=== PATIENT | female | born 1980 | race Hispanic/Latino ===

== ENCOUNTER 2017-04-15 07:48 | Day surgery (SDC) | payer OTHER ==
[~2017-04-15] VITALS: Ht 157.5 cm; Wt 60.4 kg
[2017-04-15] VITALS (9 sets, daily range): BP systolic 99–111; BP diastolic 45–82; PULSE 59–76; RESP 12–18; O2SAT 99–100
[~2017-04-15 07:48] MED LIST: CeFAZolin 2 Gm/50 mL D5W IV Premix IV ONE; LEVO25TA5 PO; Lactated Ringer's 1,000 ML IV ONE; VARE1TAB22 PO; ZOLP10TA5 PO
[2017-04-15] MEDS ORDERED: MetoCLOpramide 5 mg/mL 2 mL Inj ONE (07:49)
[2017-04-15] MEDS ORDERED: Ondansetron 2 mg/mL 2 mL Inj ONE (07:49)
[2017-04-15] MEDS ORDERED: Propofol 10 mg/mL 20 mL Inj ONE (07:49)
[2017-04-15] MEDS ORDERED: Dexamethasone 4 mg/mL Inj ONE (07:49)
[2017-04-15] MEDS ORDERED: fentaNYL-PF 50 mCg/mL 2 mL Inj ONE (07:49)
--- NOTE | 2017-04-15 09:32 | PCM.HPANE ---
Patient Data Surgeon Admitting Provider: Attending Provider:Albertina Ibarra MD Primary Care Physician:Imtiaz Smith DO Other Provider:Uli Nash Anesthesia Reason for Visit Mass Of Subcutaneous Tissue Ht/WT & BMI Height (Feet): 5 Height (Inches): 2.00 Weight (Kilograms): 60.400 Body Mass Index 24.00 Allergies Coded Allergies: hydrocodone (Verified Allergy, Unknown, nausea, 04/11/17) oxycodone (Verified Allergy, Unknown, nausea, 04/11/17) Past Anesthesia History Anesthesia History: Denies:: Anesthesia Reactions Diabetes History Hx Diabetes?: No Medications Home Meds Incl Beta Edith: No Reported Medications Zolpidem 10 Mg Tablet5 Mg PO HS PRN For Insomnia Ref 0 04/11/17 Levothyroxine 25 Mcg Tywajn91 Mcg PO DAILY Ref 0 04/11/17 Varenicline Tartrate (Chantix)1 Mg Tablet1 Mg PO DAILY 04/11/17 History History of ENT Problems?: No HEENT History: Denies:: Abnormal Airway Cataracts Difficult Intubation Dysphagia Glaucoma Hearing Problem Sinus Problem TMJ Denture Type: None Teeth Condition: Within Normal Limits Hx of Heart Problems?: No Cardiovascular History: Denies:: AICD Abdominal Aortic Aneurism Atrial Fibrillation Cardiac Surgery Chest Pain Congestive Heart Failure Coronary Artery Disease Edema Heart Murmur Hypertension Irregular Heartbeat Pacemaker Peripheral Vascular Rheumatic Fever Thrombophlebitis Valvular Heart Disease Hx of Respiratory Problem?: No Respiratory History: Denies:: Asthma COPD Chest Surgery Cough Dyspnea Emphysema Hemoptysis Oxygen Administration Pneumonia Pulmonary Embolism Tuberculosis Use of C-PAP Machine Use of Inhalers / NEBS Hx Neurologic Problems?: No Hx of GI Problems?: No Hx of Problems?: No Skin History: Denies:: History Skin Disorders? Pressure Ulcers Hx Musculoskeletal Problems?: Yes Hx of Psycho/Social Problems?: No Hx Surgeries?: Yes (elbow surgery) Hx Any Other Health Problems?: Yes Other History: Positive for:: Thyroid Disease Denies:: Cancer Hx Diabetes: No Hx Alcohol Use: YesHave You Smoked inLast 12 mo: Yes Stop/Bang Treated for Sleep Apnea?: No Do You Have a CPAP Machine?: No S-Snoring: Do You Snore Loudly: No T-Tired: feel tired, fatigued: Yes O-Obsered: Observed not breath: No P-Blood Pressure: treated: No B- Body Mass Index > 35 kg/m2: No A- Age over 50: No N- Neck Large Circumference: No G- Gender Male: No [place]TE Total Score: 1 [place] Risk Assessment: Low Risk, <3 Yes Risk Assessment Category Category 1A: Patient has history of documented sleep apnea, and HAS NOT received any narcotic, sedative or anesthesia administration during this stay. Category 1B: Patient has history of documented sleep apnea, and HAS received any narcotic , sedative or anesthesia administration during this stay Category 2: Patient has SUSPECTED Obstructive Sleep Apnea, and HAS received any narcotic , sedative or anesthesia administration during this stay. Category 3: Patient has SUSPECTED Obstructive Sleep Apnea and HAS NOT received narcotic, sedative or anesthesia administration during this stay. Category 4: Outpatient in Procedural Areas with known sleep apnea or who screen positive for High Risk via the STOP/BANG questionnaire. Exam Exam Vital Signs Vital Signs Date Time Temp Pulse Resp B/P Pulse Ox O2 Delivery O2 Flow Rate FiO2 04/15/17 08:13 36.1 70 12 111/82 100 Room Air General Appearance: Oriented X3 HEENT/AIRWAY: MP 2 Lungs: Normal Air Movement Heart: Regular Rate/Rhythm Meds/Labs/Diagnostics Admission Meds Current Medications Lactated Ringer's (Lr) 1,000 ml @ 10 mls/hr Q24H ONCE IV Last administered on 04/15/17t 08:43; Start 04/15/17 at 05:00; Stop 04/16/17 at 04:59 Plan Impression Patient chart reviewed, patient interviewed and anesthestic plan with risks, benefits, and alternatives discussed, and informed consent obtained. ASA Physical Status: ASA2 Mod Systemic Disease Anesthetic Plan: GA Bene/Risks/Altern/Consents: Yes HP Complete Prior to Induction: Yes David Carrasquillo MD Apr 15, 2017 09:32
[2017-04-15] MEDS ORDERED: Bupivacaine-MPF 0.5% 30 mL Inj INFILTRATE ONE (10:11)
--- NOTE | 2017-04-15 10:46 | PCM.SURGPO ---
Immediate Operative Note Date of Surgery: Apr 15, 2017 Pre Operative Diagnosis R posterior chest subcutaneous mass Post Operative Diagnosis R posterior chest subcutaneous mass Procedure Excision of Right posterior chest subcutaneous mass Surgeon and Regional Owner Operator Truck Driver Surgeon: Albertina Ibarra MD Assistants: Francisco Rock PAC Findings 11X9.5cm Mass grossly consistent with lipoma Complications There were no periprocedural complications identified. Surgical Specimen Removed: Yes Specimen sent to Pathology: Yes Anesthetic Administered: GA Grafts, Implants: None Output, Estimated Blood Loss: 0 Blood Admin during surgery: No Attending Statement Finance Insurance Manager listed was medically necessary for the successful completion of the case Albertina Ibarra MD Apr 15, 2017 10:46
[2017-04-15] MEDS ORDERED: Lactated Ringer's 1,000 ML IV SCH (11:03)
[2017-04-15] MEDS ORDERED: Lactated Ringer's 500 ML IV PRN (11:03)
--- NOTE | 2017-04-15 11:04 | PCM.ANEP1 ---
Post Anesthesia PACU Phase 1 Assessment Vital Signs Vital Signs Date Time Temp Pulse Resp B/P Pulse Ox O2 Delivery O2 Flow Rate FiO2 04/15/17 11:00 76 14 106/68 100 Room Air 04/15/17 10:55 66 15 99/45 100 Simple Mask 6 04/15/17 10:50 59 12 101/59 100 Simple Mask 6 04/15/17 10:47 36.6 103/73 04/15/17 08:13 36.1 70 12 111/82 100 Room Air Anesthetic Administered: GA Level of Alertness: Awake, talking Pain: No Nausea or Vomiting: No CV Function & Hydration Stable: Yes Airway Device: Lungs: Normal Air Movement PACU Phase 2 Assessment Patient Instructions Provided: N/A David Carrasquillo MD Apr 15, 2017 11:04
[2017-04-15] MEDS ORDERED: Ondansetron 2 mg/mL 2 mL Inj IVPUSH PRN (11:05)
[2017-04-15] MEDS ORDERED: EPHEDrine Sulfate 50 mg/mL Inj IVPUSH PRN (11:05)
[2017-04-15] MEDS ORDERED: Dexamethasone 4 mg/mL Inj IVPUSH PRN (11:05)
[2017-04-15] MEDS ORDERED: MetoCLOpramide 5 mg/mL 2 mL Inj IVPUSH PRN (11:05)
[2017-04-15] MEDS ORDERED: fentaNYL-PF 50 mCg/mL 2 mL Inj IVPUSH PRN (11:05)
[2017-04-15] MEDS ORDERED: Phenylephrine 10,000 mCg/mL Inj IVPUSH PRN (11:05)
--- NOTE | 2017-04-16 15:28 | OP ---
[address] [address] OPERATIVE REPORT PATIENT: YENIFER RAO : 1980 MR#: [id number] ADMIT: 04/15/2017 JOB ID: [id number] DATE OF SURGERY: 04/15/2017 PREOPERATIVE DIAGNOSIS(ES): Right posterior chest subcutaneous mass. POSTOPERATIVE DIAGNOSIS(ES): Right posterior chest subcutaneous mass. PROCEDURE PERFORMED: Excision of right posterior chest subcutaneous mass. SURGEON: Albertina Ibarra M.D. TRANSMISSION ASSEMBLER: SANTY INDICATIONS: The patient is a 36-year-old lady who noticed a swelling on the back of her right armpit a year ago. Initially thought it was just her gaining weight but after noticing asymmetry, she discussed it with her primary physician, who obtained an ultrasound which showed findings suggestive of a 10 cm lipoma. She saw me in consultation and after discussing the risks, benefits, and alternatives, she is here today for resection. PROCEDURE DETAILS: She was placed in a supine position. Underwent smooth induction of general anesthesia, and then was placed in a right lateral decubitus position padding all pressure points. I made a vertical incision along May lines anterior to the tattoo on her shoulder blade and divided the skin and subcutaneous tissue sharply. I immediately encountered a fatty tumor most consistent with a lipoma and I dissected it circumferentially with a combination of blunt and sharp techniques. It was directly laying on the top of the latissimus dorsi muscle but did not show any evidence of extending deep to it. After the mass was completely removed, it measured to be 11 x 9.5 cm and after ensuring good hemostasis, I closed the wound in layers of 3-0 Vicryl followed by 4-0 Monocryl. Steri-Strips and sterile dressing were placed and she was recovered from anesthesia and was taken to the recovery room in stable condition.
--- NOTE | 2017-04-17 10:47 | PATH ---
SURGICAL PATHOLOGY Attending Physician:Albertina Ibarra MD CASE STATUS: Signed Out PATIENT NAME: YENIFER RAO PID: [id number] : 1980 DATE COLLECTED:04/15/2017 00:00 SPECIMEN: Mass, NOS CLINICAL HISTORY: RIGHT CHEST MASS 1). RIGHT POSTERIOR AXILLARY FOLD SUBCUTANEOUS MASS FINAL DIAGNOSIS: 1.SOFT TISSUE MASS, RIGHT SUBCUTANEOUS POSTERIOR AXILLARY FOLD: LIPOMA. NO EVIDENCE OF MALIGNANCY. ICD10 D17.9 GROSS DESCRIPTION: The specimen is received in formalin, labeled with the patient's name, sublabeled as right subq posterior axillary fold mass and consists of a brooks-yellow rubbery lobular fatty mass (11.2 x 8.7 x 3.0 cm). The cut surface is homogenous and unremarkable. Ink code: black-exterior. 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 04/16/17 JM MICRO DESCRIPTION: See diagnosis. ICD-9 CODES: CPT CODES: 55189 Electronically Signed Out Lisandro Mares MD [facility] [address], [place] [address] Technical component performed at [facility], [facility] [address], [place], [address]
== END 2017-04-15 23:59 | disposition home or self-care (01) ==
LOC: SAS 07:48
PROVIDERS: ATTEND Student in an Organized Health Care Education/Training Program
DX: D17.1 Benign lipomatous neoplasm of skin and subcutaneous tissue of trunk (principal); R22.2 Localized swelling, mass and lump, trunk; E03.9 Hypothyroidism, unspecified; F17.210 Nicotine dependence, cigarettes, uncomplicated
CPT/HCPCS: 22903; J0690; J1100; J2405; J2765; J3010; J7120